=== PATIENT | female | born 1980 | race Caucasian/White ===

== ENCOUNTER 2016-04-30 13:51 | Emergency (ER) | payer MEDICAID ==
[2016-04-30] MEDS ORDERED: ONDANSETRON 4 MG VIAL ONE (14:31)
[2016-04-30] MEDS ORDERED: DILAUDID 1 MG/ML AMP ONE ×3 (14:31→16:16)
[2016-04-30] MEDS ORDERED: ED CLINDAMYCIN PREMIX 50 ML IV ONE (15:54)
[2016-04-30] MEDS ORDERED: LIDOCAINE 1% MDV 20 ML ONE (15:54)
[2016-04-30] MEDS ORDERED: KCL CR 20 MEQ TAB PO ONE (16:56)
== END 2016-04-30 17:18 | disposition home or self-care (01) ==
LOC: ER 13:51
DX: L02.415 Cutaneous abscess of right lower limb (principal); R94.5 Abnormal results of liver function studies; N30.01 Acute cystitis with hematuria
CPT/HCPCS: 36415; 76882; 80053; 81001; 85025; 87071; 87077; 87088; 87186; 96374; 96375; 96376